=== PATIENT | female | born 1990 | race Caucasian/White ===

== ENCOUNTER → 2018-01-23 | Outpatient (CLI) | payer OTHER ==
[~2018-01-23] VITALS: Ht 152.4 cm; Wt 64.4 kg
[~2018-01-23] MED LIST: ALLEGRA ALLERG180 MG PO; AMOX1TAB12 PO; CORTISPORIN EAR10 M1 OT; FIORICET 50-321 EACH PO; FLONASE16 GM NASAL; GILTUSS TR TAB1 EACH PO; INTESTINEX1 CA1 PO; INTESTINEX1 CAP PO; LEVSIN/SL0.125 MG SL; LOTRISONE CREAM45 GM TOP; NAPR500T14 PO; OSEL75CA PO; SYNTHROID75 MCG; SYNTHROID75 MCG PO; SYNTHROID88 MCG; SYNTHROID88 MCG PO; ZYRTEC10 MG PO
== END | disposition home or self-care (01) ==
LOC: PPHC 12:40
DX: R10.84 Generalized abdominal pain (principal)

== ENCOUNTER 2018-06-11 13:59 | Emergency (ER) | payer OTHER ==
[~2018-06-11] VITALS: Ht 160 cm; Wt 64.9 kg
== END 2018-06-11 14:31 | disposition home or self-care (01) ==
LOC: ER 13:59
DX: S01.111A Laceration without foreign body of right eyelid and periocular area, initial encounter (principal); W45.8XXA Other foreign body or object entering through skin, initial encounter; Y93.89 Activity, other specified; Y92.89 Other specified places as the place of occurrence of the external cause; Y99.8 Other external cause status

== ENCOUNTER 2018-06-18 11:41 | Emergency (ER) | payer OTHER ==
[~2018-06-18] VITALS: Ht 160 cm; Wt 65.8 kg
== END 2018-06-18 14:41 | disposition home or self-care (01) ==
LOC: ER 11:41
DX: Z48.02 Encounter for removal of sutures (principal)

== ENCOUNTER 2021-06-10 08:23 | Day surgery (SDC) | payer OTHER ==
[~2021-06-10 08:23] MED LIST changes: +DICY20TA
== END 2021-06-10 13:00 | disposition home or self-care (01) ==
LOC: AMB-ENDOS 08:23
PROVIDERS: ATTEND Colon & Rectal Surgery
DX: K62.89 Other specified diseases of anus and rectum (principal); K64.8 Other hemorrhoids; Z20.822 Contact with and (suspected) exposure to COVID-19; Z12.11 Encounter for screening for malignant neoplasm of colon

== ENCOUNTER 2021-06-22 03:21 | Emergency (ER) | payer OTHER ==
[~2021-06-22] VITALS: Ht 162.6 cm; Wt 59.9 kg
== END 2021-06-22 09:59 | disposition home or self-care (01) ==
LOC: ER 03:21
DX: K59.00 Constipation, unspecified (principal)

== ENCOUNTER 2022-06-08 09:17 | Outpatient (CLI) | payer OTHER | END 2022-06-08 10:30 | disposition home or self-care (01) | LOC: PRENATAL 09:17 | PROVIDERS: ATTEND Obstetrics & Gynecology Maternal & Fetal Medicine | DX: O36.80X0 Pregnancy with inconclusive fetal viability, not applicable or unspecified (principal); Z36.0 Encounter for antenatal screening for chromosomal anomalies; O99.280 Endocrine, nutritional and metabolic diseases complicating pregnancy, unspecified trimester; Z3A.11 11 weeks gestation of pregnancy ==

== ENCOUNTER 2022-07-12 03:30 | Emergency (ER) | payer OTHER ==
[~2022-07-12] VITALS: Ht 162.6 cm; Wt 63.5 kg
[2022-07-12] MEDS ORDERED: CEPHALEXIN500 MG PO (05:30)
== END 2022-07-12 05:40 ==
LOC: ER 03:30
DX: H60.91 Unspecified otitis externa, right ear (principal); E03.9 Hypothyroidism, unspecified

== ENCOUNTER 2022-08-05 12:37 | Outpatient (CLI) | payer OTHER ==
[~2022-08-05 12:37] MED LIST changes: +CEPHALEXIN500 MG PO
== END 2022-08-05 14:20 | disposition home or self-care (01) ==
LOC: PRENATAL 12:37
PROVIDERS: ATTEND Obstetrics & Gynecology Maternal & Fetal Medicine
DX: O35.0XX0 Maternal care for (suspected) central nervous system malformation in fetus, not applicable or unspecified (principal); O99.280 Endocrine, nutritional and metabolic diseases complicating pregnancy, unspecified trimester; Z3A.20 20 weeks gestation of pregnancy

== ENCOUNTER 2022-10-29 13:43 | Outpatient (CLI) | payer OTHER | END 2022-10-29 14:43 | disposition home or self-care (01) | LOC: PRENATAL 13:43 | PROVIDERS: ATTEND Obstetrics & Gynecology Maternal & Fetal Medicine | DX: O26.849 Uterine size-date discrepancy, unspecified trimester (principal); O99.280 Endocrine, nutritional and metabolic diseases complicating pregnancy, unspecified trimester; Z3A.32 32 weeks gestation of pregnancy ==

== ENCOUNTER 2022-12-04 13:20 | Inpatient (IN) | payer OTHER ==
[~2022-12-04] VITALS: Ht 162.6 cm; Wt 77.1 kg
[2022-12-04] MEDS ORDERED: PRENATAL + DHA1 EAC1 PO (13:24)
== END 2022-12-06 14:12 | disposition home or self-care (01) | DRG 807 ==
LOC: LDR 13:20 → OB/GYN 13:20
PROVIDERS: ADMIT Obstetrics & Gynecology; ATTEND Obstetrics & Gynecology
PROC: 10E0XZZ Delivery of Products of Conception, External Approach (ICD-10-PCS; principal; 2022-12-04)
PROC: 0UQMXZZ Repair Vulva, External Approach (ICD-10-PCS; 2022-12-04)
PROC: 4A1HXCZ Monitoring of Products of Conception, Cardiac Rate, External Approach (ICD-10-PCS; 2022-12-04)
DX: O70.0 First degree perineal laceration during delivery (principal); Z37.0 Single live birth; O99.824 Streptococcus B carrier state complicating childbirth; Z3A.37 37 weeks gestation of pregnancy; Z20.822 Contact with and (suspected) exposure to COVID-19

== ENCOUNTER 2025-08-29 22:07 | Emergency (ER) | payer OTHER ==
[~2025-08-29] VITALS: Ht 160 cm; Wt 60.8 kg
[~2025-08-29 22:07] MED LIST changes: +PRENATAL + DHA1 EAC1 PO
[2025-08-30] MEDS ORDERED: FAMOTIDINE/PF 20 MG/2 ML VIAL IV PUSH STA (00:43)
[2025-08-30] MEDS ORDERED: PROMETHAZINE HCL 50 MG/ML AMPUL IM STA (00:43)
[2025-08-30] MEDS ORDERED: ALBUTEROL SULFATE 3 ML/2.5 MG AMPUL.NEB IH STA (00:44)
[2025-08-30] MEDS ORDERED: 0.9 % SODIUM CHLORIDE 1,000 ML IV ONE (00:45)
[2025-08-30] MEDS ORDERED: ALBUTEROL SULFATE 3 ML/2.5 MG AMPUL.NEB IH ONE ×3 (00:51→08:03)
[2025-08-30] MEDS ORDERED: ALBUTEROL SULFATE 3 ML/2.5 MG AMPUL.NEB IH SCH (01:00)
[2025-08-30] MEDS ORDERED: FAMOTIDINE/PF 20 MG/2 ML VIAL ONE (01:08)
[2025-08-30] MEDS ORDERED: PROMETHAZINE HCL 50 MG/ML AMPUL IM ONE (01:08)
[2025-08-30 01:56] LABS: BASO % 0.1 % (0.1-1.2); EOS # 0.00 (0.04-0.54); EOS % 0.0 % (0.7-7.0); LYMPH # 0.72 (1.18-3.74); LYMPH % 7.7 % (19.3-53.1); MEAN PLATELET VOLUME 10.50 fl (9.4-12.4); MONO # 0.38 (0.24-0.82); MONO % 4.1 % (4.7-12.5); NEUT # 8.19 (1.56-6.13); NEUT % 87.7 % (34.0-71.1); RED CELL DISTRIBUTION WIDTH 12.8 % (11.6-14.4)
[2025-08-30 02:20] LABS: ALT/SGPT 21.0 U/L (12-78); AST/SGOT 36.0 U/L (15-37); BILIRUBIN TOTAL 0.72 mg/dL (0.3-1.2); BUN CREA RATIO 13.0 (7.0-25.0); CREATININE SERUM 0.75 mg/dL (0.55-1.02); GFR 87.94; GLOBULINA 3.8 G/DL (2.4-3.5); GLUCOSE FASTING 120.0 mg/dL (65-100); OSMOLALITY SERUM 280.0 MOSM/KG (275-295)
[2025-08-30 02:23] LABS: COVID-19 AG NEGATIVE (NEGATIVE)
[2025-08-30] MEDS ORDERED: PEPCID40 MG PO (08:35)
[2025-08-30] MEDS ORDERED: ONDANSETRON ODT8 MG PO ×2 (08:35→08:36)
[2025-08-30] MEDS ORDERED: ALBUTEROL2.5 MG/3 M IH (08:37)
[2025-08-30 09:12] LABS: URINE APPEARANCE Clear; URINE BILIRRUBIN Negative (NEGATIVE); URINE BLOOD Negative; URINE COLOR Yellow; URINE GLUCOSE Negative (NEGATIVE); URINE LEUKOCYTE Negative; URINE NITRATE Negative; URINE PROTEIN 30 (NEGATIVE); URINE UROBILINOGEN 0.2 E.U./dl
[2025-08-30 09:16] LABS: URINE BACTERIA 25.1 uL (0.0-1933); URINE EPITHELIAL CELLS 21.9 uL (0.0-38.8); URINE RBC 31.2 uL (0.0-20.8); URINE WBC 9.2 uL (0.0-23.2)
[2025-08-30 09:54] LABS: URINE CAST 1.02 uL (0.0-1.40); URINE KETONE 40 (NEGATIVE)
== END 2025-08-30 08:44 ==
LOC: ER 22:08 → EMR PED 22:25 → ER 22:25
PROVIDERS: General Practice
DX: R06.02 Shortness of breath (principal); R11.10 Vomiting, unspecified; E03.9 Hypothyroidism, unspecified; Z20.822 Contact with and (suspected) exposure to COVID-19